=== PATIENT | male | born 1960 | race Caucasian/White ===

== ENCOUNTER 2020-01-23 07:56 | Outpatient (CLI) | payer OTHER ==
[2020-01-23 16:16] LABS: SARS-CoV-2 MS2 Positive; SARS-CoV-2 N Gene Negative; SARS-CoV-2 S Gene Negative; SARS-CoV-2 by NAA Not Detected (NotDetected); SARS-CoV-2 orf1ab Negative
== END 2020-01-23 07:57 | disposition home or self-care (01) ==
LOC: LABBT 07:56
PROVIDERS: ATTEND Neurological Surgery
DX: M54.12 Radiculopathy, cervical region (principal); Z20.828 Contact with and (suspected) exposure to other viral communicable diseases
CPT/HCPCS: 87635; U0003

== ENCOUNTER 2020-01-27 08:41 | Day surgery (SDC) | payer OTHER ==
[2020-01-24 14:32] VITALS: BMI 33.3
--- NOTE | 2020-01-26 21:28 | HP ---
HISTORY OF PRESENT ILLNESS: Mr. Mary is a 59-year-old gentleman, referred to us for evaluation of chronic neck and radicular pain to the bilateral upper extremities, left worse than right. He has treated this over the years with exercises and surgery other parts of his body including the ulnar nerve, carpal tunnel, etc. His current presentation causes pain when turning his head, which sounds like positive Spurling's response, pain in his shoulder blades and pain with numbness in the bilateral upper extremities that sounds best fit a C7 pattern. MRI on disk from the [place] reveals overall well-appearing spine. There is significant motion artifact series. There is specifically foraminal stenosis secondary to disk osteophyte complex at C6-7. Examination is deferred secondary to telehealth management. PAST MEDICAL HISTORY: Significant for chronic pain syndrome, hypercholesterolemia, hypertension, arthritis, seasonal allergies. PAST SURGICAL HISTORY: Left knee replacement, right ankle reconstruction, right knee replacement, right carpal tunnel, right ulnar nerve release. CURRENT MEDICATIONS: 1. Lisinopril. 2. Amlodipine. 3. Aspirin. 4. Loratadine. 5. Methocarbamol. ALLERGIES: TO AMOXICILLIN. ASSESSMENT: Cervical radiculopathy. PLAN: Dr. Crawford met with the patient, reviewed imaging, advocated for C6-7 ACDF. He explained to the patient the risks, benefits, and alternatives to the procedure. The patient expressed understanding and elected to move forward with surgery as discussed. I do believe the patient is mentally competent and capable of making medical decisions for himself. We will move forward with surgery as planned. Job ID: [id number]
[2020-01-27] MEDS ORDERED: Levofloxacin 500 mg/D5W 100 ml Premix Bag ONE (09:00)
[2020-01-27] MEDS ORDERED: Clindamycin/D5W 900 mg/50 ml Premix Bag ONE (09:00)
[2020-01-27] MEDS ORDERED: Thrombin 5000 UNITS/5 ML VIAL ONE (09:49)
[2020-01-27] MEDS ORDERED: Fentanyl 250 MCG/5 ML VIAL ONE (10:17)
[2020-01-27] MEDS ORDERED: Midazolam HCl 2 mg/2 ml Vial ONE (10:17)
[2020-01-27] MEDS ORDERED: EPHEDRINE 25 MG/5 ML SYRINGE ONE (11:27)
[2020-01-27] MEDS ORDERED: Dexamethasone 20 MG/5 ML VIAL ONE (11:27)
[2020-01-27] MEDS ORDERED: Ondansetron PF 4 MG/2 ML Vial ONE (11:27)
[2020-01-27] MEDS ORDERED: Lidocaine 1% PF 5 ML VIAL ONE (11:27)
[2020-01-27] MEDS ORDERED: Glycopyrrolate 0.2 MG/ML 5 ML SYRINGE ONE (11:27)
[2020-01-27] MEDS ORDERED: Rocuronium Bromide 10 MG/ML (10ML VIAL) ONE (11:27)
[2020-01-27] MEDS ORDERED: PROPOFOL 200 MG/20 ML VIAL ONE (11:27)
[2020-01-27] MEDS ORDERED: HYDROmorphone 2 MG/ML VIAL ONE (11:45)
[2020-01-27] MEDS ORDERED: Fentanyl 100 MCG/2 ML VIAL ONE ×2 (12:00→12:13)
[2020-01-27] MEDS ORDERED: Tamsulosin HCl 0.4 MG CAP ONE (12:10)
--- NOTE | 2020-01-27 16:21 | OP ---
DATE OF PROCEDURE: 01/27/2020 MANAGER [employer]: Chong Samayoa PA-C INDICATION FOR PROCEDURE: Pain. DIAGNOSIS: Cervical radiculopathy. PROCEDURE PERFORMED: Anterior cervical diskectomy and fusion, C6-C7. ANESTHESIA: General. DESCRIPTION OF PROCEDURE: The patient was brought into the operating room and placed under general anesthesia. He was placed on table in a supine position. A transverse incision was planned over the lateral aspect of the neck on the right. After prepping and draping and after an appropriate preoperative pause, the incision was created. The underlying platysma muscle was identified and incised. A blunt tissue plane anterior to the sternocleidomastoid muscle was used to gain access to the prevertebral space. Self-retaining retractors were placed, and a C-arm image was obtained to confirm the appropriate level. Distraction pins were placed in the C6-C7 bodies, where the space was distracted slightly. Disk material as well as anterior and posterior osteophytes were removed until the C6-C7 segment was decompressed. An 8-mm lordotic PEEK cage packed with allograft, and autograft material was placed within the interbody space. An anterior cervical plate was then fashioned to the front of spine and secured with a total of 4 fixed screws as a separate component. The wound was irrigated. Hemostasis was maintained throughout. The wound was then closed in anatomic layers, and a pressure dressing was applied. There were no known procedural complications. Job ID: [id number]
== END 2020-01-27 13:53 | disposition home or self-care (01) ==
LOC: SDC 08:41
PROVIDERS: ATTEND Neurological Surgery
PROC: 0RG10A0 Fusion of Cervical Vertebral Joint with Interbody Fusion Device, Anterior Approach, Anterior Column, Open Approach (ICD-10-PCS; principal; 2020-01-27)
PROC: 0RT30ZZ Resection of Cervical Vertebral Disc, Open Approach (ICD-10-PCS; principal; 2020-01-27)
DX: M54.12 Radiculopathy, cervical region (principal); M25.78 Osteophyte, vertebrae; M48.02 Spinal stenosis, cervical region; I10 Essential (primary) hypertension; E78.5 Hyperlipidemia, unspecified; G47.30 Sleep apnea, unspecified; G89.4 Chronic pain syndrome; E78.00 Pure hypercholesterolemia, unspecified; M19.90 Unspecified osteoarthritis, unspecified site; Z79.1 Long term (current) use of non-steroidal anti-inflammatories (NSAID); Z79.82 Long term (current) use of aspirin; Z79.899 Other long term (current) drug therapy; Z88.0 Allergy status to penicillin
CPT/HCPCS: 76000; C1713; C1776; J1100; J1170; J1956; J2250; J2405; J2704; J3010; J3490

== ENCOUNTER 2020-09-21 08:37 | Outpatient (CLI) | payer OTHER ==
[2020-09-21 18:50] LABS: SARS-CoV-2 PCR by NAA Not Detected (NotDetected)
== END 2020-09-21 08:38 | disposition home or self-care (01) ==
LOC: LABBT 08:37
PROVIDERS: ATTEND Neurological Surgery
DX: Z01.812 Encounter for preprocedural laboratory examination (principal); T84.9XXA Unspecified complication of internal orthopedic prosthetic device, implant and graft, initial encounter; Z20.822 Contact with and (suspected) exposure to COVID-19
CPT/HCPCS: 93005; 93010; U0003; U0005

== ENCOUNTER 2020-09-26 07:07 | Day surgery (SDC) | payer OTHER ==
[2020-09-25 10:43] VITALS: BMI 32.1
[2020-09-26] MEDS ORDERED: Thrombin 5000 UNITS/5 ML VIAL ONE (08:30)
[2020-09-26] MEDS ORDERED: Clindamycin/D5W 900 mg/50 ml Premix Bag ONE (08:35)
[2020-09-26] MEDS ORDERED: Levofloxacin 500 mg/D5W 100 ml Premix Bag ONE (08:35)
[2020-09-26] MEDS ORDERED: Midazolam HCl 2 mg/2 ml Vial ONE (08:40)
[2020-09-26] MEDS ORDERED: Fentanyl 100 MCG/2 ML VIAL ONE ×2 (08:40)
[2020-09-26] MEDS ORDERED: Rocuronium Bromide 10 MG/ML (10ML VIAL) ONE (09:32)
[2020-09-26] MEDS ORDERED: Dexamethasone 20 MG/5 ML VIAL ONE (09:32)
[2020-09-26] MEDS ORDERED: Glycopyrrolate 0.2 MG/ML 5 ML SYRINGE ONE (09:32)
[2020-09-26] MEDS ORDERED: PROPOFOL 200 MG/20 ML VIAL ONE (09:32)
[2020-09-26] MEDS ORDERED: Ondansetron PF 4 MG/2 ML Vial ONE (09:32)
[2020-09-26] MEDS ORDERED: Lidocaine 1% PF 5 ML VIAL ONE (09:32)
[2020-09-26] MEDS ORDERED: Tamsulosin HCl 0.4 MG CAP ONE (11:07)
== END 2020-09-26 13:22 | disposition home or self-care (01) ==
LOC: SDC 07:07
PROVIDERS: ATTEND Neurological Surgery
PROC: 0PP304Z Removal of Internal Fixation Device from Cervical Vertebra, Open Approach (ICD-10-PCS; principal; 2020-09-26)
DX: T84.418A Breakdown (mechanical) of other internal orthopedic devices, implants and grafts, initial encounter (principal); E78.00 Pure hypercholesterolemia, unspecified; G89.29 Other chronic pain; I10 Essential (primary) hypertension; J30.2 Other seasonal allergic rhinitis; M19.90 Unspecified osteoarthritis, unspecified site; Z88.0 Allergy status to penicillin
CPT/HCPCS: 76000; J1100; J1956; J2250; J2405; J2704; J3010; J3490